=== PATIENT | female | born 1985 | race Two or more races ===

== ENCOUNTER 2021-07-03 08:53 | Outpatient (CLI) | payer OTHER | END 2021-07-03 09:06 | disposition home or self-care (01) | LOC: RX STUDY 08:53 | PROVIDERS: ATTEND Obstetrics & Gynecology | DX: N83.8 Other noninflammatory disorders of ovary, fallopian tube and broad ligament (principal) ==

== ENCOUNTER 2022-04-04 06:10 | Day surgery (SDC) | payer OTHER ==
[2022-04-04] MEDS ORDERED: ULTRACET PO (14:50)
[2022-04-04] MEDS ORDERED: NAPROXEN SODIU550 MG PO (16:12)
[2022-04-04] MEDS ORDERED: COLACE100 MG PO (16:12)
== END 2022-04-04 17:50 | disposition home or self-care (01) ==
LOC: CIR.AMB 06:10
PROVIDERS: ATTEND Obstetrics & Gynecology
DX: K38.8 Other specified diseases of appendix (principal); D28.2 Benign neoplasm of uterine tubes and ligaments; N70.11 Chronic salpingitis; N80.0 Endometriosis of uterus; N73.6 Female pelvic peritoneal adhesions (postinfective)